=== PATIENT | male | born 1960 | race Caucasian/White ===

== ENCOUNTER 2025-01-22 15:00 | Emergency (ER) | payer OTHER ==
[2025-01-22 15:20] VITALS: BP 124/81; PULSE 84; RESP 18; TEMP 98.9; BMI 27.2
[2025-01-22] MEDS ORDERED: ACETAMINOPHEN INJECTION 100 ML ONE (16:03)
[2025-01-22] MEDS ORDERED: FAMOTIDINE 20 MG/50 ML IVPB 20 MG/50 ML MG IVPB ONE (16:03)
[2025-01-22] MEDS: FAMOTIDINE 20 MG/50 ML IVPB 20 MG/50 ML MG IVPB ONE (16:09)
[2025-01-22] MEDS: ACETAMINOPHEN 1000 MG/100 ML BAG IVPB ONE (16:09)
[2025-01-22 16:32] LABS: HEMOGLOBIN 14.7 G/dL (11.7-16.9); MCHC 34.1 g/dl (32.0-35.9); MEAN PLT VOLUME 8.3 fl (7.5-11.1); PLATELET COUNT 270.1 10^3/uL (134-434); RBC 4.89 10^6/uL (4.00-5.60); RDW 14.4 % (11.9-15.9); WHITE BLOOD COUNT 7.9 10^3/uL (4.0-10.8)
[2025-01-22] MEDS ORDERED: LIDOCAINE 5% TOPICAL PATCH ONE (16:45)
[2025-01-22 16:46] LABS: INR 0.92 (0.83-1.09); PROTHROMBIN TIME (PATIENT) 10.5 SEC (9.7-13.0)
[2025-01-22 16:49] LABS: ACTIVATED PTT 32.6 SECONDS (25.2-36.5)
[2025-01-22] MEDS: LIDOCAINE 5% TOPICAL PATCH TP ONE (16:49)
[2025-01-22 16:58] LABS: ALBUMIN 4.3 g/dl (3.4-5.0); BILIRUBIN,TOTAL 0.7 mg/dl (0.2-1); CALCIUM 9.8 mg/dl (8.5-10.1); CREATININE 1.7 mg/dl (0.6-1.3); POTASSIUM 4.6 mmol/L (3.5-5.1); TOT PROT 6.7 g/dl (6.4-8.2)
[2025-01-22 17:30] LABS: PLATELET ESTIMATE ADEQUATE
[2025-01-22] MEDS ORDERED: LIDOCAINE PATCH REMOVAL MC SCH (22:00)
== END 2025-01-22 18:07 | disposition home or self-care (01) ==
LOC: FER 15:00
PROC: 3E033GC Introduction of Other Therapeutic Substance into Peripheral Vein, Percutaneous Approach (ICD-10-PCS; principal; 2025-01-22)
PROC: 3E033NZ Introduction of Analgesics, Hypnotics, Sedatives into Peripheral Vein, Percutaneous Approach (ICD-10-PCS; 2025-01-22)
DX: R07.89 Other chest pain (principal); R00.2 Palpitations; R10.13 Epigastric pain
CPT/HCPCS: 36415; 71046-TC-FY; 80053; 83690; 84484; 85027; 85610; 85730; 86850; 86900; 86901; 93005; 96365; 96375; 99284-25; J0131